=== PATIENT | male | born 1990 | race African-American/Black ===

== ENCOUNTER 2016-04-24 23:16 | Emergency (ER) | payer OTHER ==
[~2016-04-24] VITALS: Ht 175.3 cm; Wt 102.1 kg
[2016-04-25 00:28] LABS: URINE BILIRUBIN NEGATIVE (Negative); URINE BLOOD NEGATIVE (Negative); URINE COLOR YELLOW; URINE GLUCOSE-RANDOM* NEGATIVE (Negative); URINE KETONES NEGATIVE (Negative); URINE LEUKOCYTES-REFLEX NEGATIVE (Negative); URINE PROTEIN (DIPSTICK) NEGATIVE (Negative); URINE UROBILINOGEN 0.2 E.U./dl (0.2-1.0)
[2016-04-25] MEDS ORDERED: LIORESAL 10 MG10 MG PO (00:46)
[2016-04-25] MEDS ORDERED: NAPROSYN500 MG PO (00:46)
[2016-04-25 01:01] VITALS: BP 118/69
== END 2016-04-25 01:01 | disposition home or self-care (01) ==
LOC: ER 23:16
PROVIDERS: Emergency Medicine
DX: S33.5XXA Sprain of ligaments of lumbar spine, initial encounter (principal); F17.210 Nicotine dependence, cigarettes, uncomplicated; F10.99 Alcohol use, unspecified with unspecified alcohol-induced disorder; F12.90 Cannabis use, unspecified, uncomplicated; X58.XXXA Exposure to other specified factors, initial encounter; Y93.89 Activity, other specified; Y92.89 Other specified places as the place of occurrence of the external cause; Y99.8 Other external cause status

== ENCOUNTER 2017-10-18 21:05 | Emergency (ER) | payer OTHER ==
[~2017-10-18] VITALS: Ht 175.3 cm; Wt 104.3 kg
[~2017-10-18 21:05] MED LIST: LIORESAL 10 MG10 MG PO; NAPROSYN500 MG PO
[2017-10-18] MEDS ORDERED: ZPAK PO (22:14)
[2017-10-18] MEDS ORDERED: PROMETHAZINE-D118 ML PO (22:14)
[2017-10-18] MEDS ORDERED: MEDROLDOSEPACK PO (22:14)
[2017-10-18 22:38] VITALS: BP 136/96
== END 2017-10-18 22:39 | disposition home or self-care (01) ==
LOC: ER 21:05
DX: J02.9 Acute pharyngitis, unspecified (principal); F17.210 Nicotine dependence, cigarettes, uncomplicated